=== PATIENT | male | born 1995 | race Caucasian/White ===

== ENCOUNTER 2018-12-04 12:14 | Emergency (ER) | payer MEDICARE ==
[~2018-12-04] VITALS: Ht 165.1 cm; Wt 72.0 kg
[2018-12-04] MEDS ORDERED: FLUORESCEIN SODIUM 1MG/STRIP OP ONE (14:30)
[2018-12-04] MEDS ORDERED: TETRACAINE 0.5% OPHTH DROPS 4ML OP ONE (14:30)
[2018-12-04 16:00] VITALS: BP 126/78
== END 2018-12-04 16:10 | disposition home or self-care (01) ==
LOC: ER 12:14
DX: T15.91XA Foreign body on external eye, part unspecified, right eye, initial encounter (principal); X58.XXXA Exposure to other specified factors, initial encounter; Y93.89 Activity, other specified; Y92.89 Other specified places as the place of occurrence of the external cause; Y99.8 Other external cause status
CPT/HCPCS: 99283; 99284

== ENCOUNTER 2021-06-22 12:22 | Emergency (ER) | payer MEDICARE ==
[~2021-06-22] VITALS: Ht 165.1 cm; Wt 75.0 kg
[2021-06-22] MEDS ORDERED: BACITRACIN ZINC OINT UDPKT TOP ONE (16:00)
[2021-06-22] MEDS ORDERED: NAPR375T5 MT (16:00)
[2021-06-22] MEDS ORDERED: TETANUS, DIPHTHERIA, PERTUSSIS VAC/PF 0.5ML (>10YR OLD) IM ONE (16:15)
[2021-06-22 16:56] VITALS: BP 123/77
== END 2021-06-22 16:57 | disposition home or self-care (01) ==
LOC: ER 12:22
DX: S51.011A Laceration without foreign body of right elbow, initial encounter (principal); X58.XXXA Exposure to other specified factors, initial encounter; Y93.89 Activity, other specified; Y92.89 Other specified places as the place of occurrence of the external cause; Y99.8 Other external cause status
CPT/HCPCS: 73080; 90471; 90715; 99283

== ENCOUNTER 2023-04-07 12:13 | Emergency (ER) | payer MEDICARE ==
[~2023-04-07] VITALS: Ht 170.2 cm; Wt 82.0 kg
[~2023-04-07 12:13] MED LIST: NAPR375T5 MT
[2023-04-07 12:32] VITALS: BP 130/52; RESP 18; TEMP 98; O2SAT 96
[2023-04-07 12:33] VITALS: PULSE 80
[2023-04-07] MEDS ORDERED: IBUPROFEN 600MG TABLET PO ONE (12:45)
[2023-04-07] MEDS ORDERED: IBUP-2029 MT (13:42)
== END 2023-04-07 14:12 | disposition home or self-care (01) ==
LOC: ER 12:47
DX: S90.02XA Contusion of left ankle, initial encounter (principal); Y93.67 Activity, basketball; Y92.89 Other specified places as the place of occurrence of the external cause; Y99.8 Other external cause status
CPT/HCPCS: 73610; 73630; 29515; 99284; Z7610

== ENCOUNTER 2023-11-24 21:55 | Emergency (ER) | payer MEDICARE ==
[~2023-11-24] VITALS: Ht 165.1 cm; Wt 81.1 kg
[~2023-11-24 21:55] MED LIST changes: +IBUP-2029 MT
[2023-11-24 22:37] VITALS: BP 116/63; PULSE 78; RESP 16; TEMP 98.8; O2SAT 95
[2023-11-25] MEDS ORDERED: GUAI600T26 MT (02:23)
[2023-11-25] MEDS ORDERED: ACET-2708 MT (02:23)
[2023-11-25] MEDS ORDERED: ALBU6.7H15 INH (02:23)
== END 2023-11-25 02:51 | disposition home or self-care (01) ==
LOC: ER 21:55
DX: U07.1 COVID-19 (principal); J02.9 Acute pharyngitis, unspecified; R05.9 Cough, unspecified; Z79.899 Other long term (current) drug therapy
CPT/HCPCS: 87426; 99283